=== PATIENT | female | born 1975 | race Caucasian/White ===

== ENCOUNTER 2016-11-30 22:58 | Emergency (ER) | payer BC, OTHER ==
[2016-11-30 23:11] VITALS: RESP 18
[2016-11-30] MEDS ORDERED: Sodium Chloride 0.9% 500 ML IV ONE (23:28)
--- NOTE | 2016-11-30 23:33 | C.PDOC ---
History Of Present Illness 41 yo female come in for evaluation of Left earache gradually worse for past 4 days. Pt reports, started as Left earache 4 days ago with scant yellow ear discharges. Pt sts, went to [facility] office where received Rx: Augment, Cortisporin with worsening in symptoms. Pt sts, since early today, earache severe associated with swelling around ear and (+) green discharges, headache. Otherwise, pt denies known trauma or injury, fever, denies worse headache of life, visual changes, focal deficits, vertigo, toothache, sore throat, drooling , recent dental work, dyspnea, cough, SOB, CP, abd. pain, N/V, denies any other active complaints. Ambulate to ED for evaluation, appears in pain. Time Seen by Provider: 11/30/16 23:13 Chief Complaint (Nursing): ENT Problem History Per: Patient Onset/Duration Of Symptoms: Gradual Past Medical History Reviewed: Historical Data, Nursing Documentation, Vital Signs Vital Signs: Last Vital Signs Temp 98.2 F 12/01/16 01:17 Pulse 82 12/01/16 01:17 Resp 18 12/01/16 01:17 BP 151/96 H 12/01/16 01:17 Pulse Ox 99 12/01/16 01:23 - Medical History PMH: HTN, Migraine Surgical History: Family History: States: No Known Family Hx - Social History Hx Tobacco Use: No Hx Alcohol Use: Yes Hx Substance Use: No - Immunization History Hx Tetanus Toxoid Vaccination: No Hx Influenza Vaccination: No Hx Pneumococcal Vaccination: No Review Of Systems Except As Marked, All Systems Reviewed And Found Negative. Constitutional: Negative for: Fever, Chills Eyes: Negative for: Vision Change, Eyelid Inflammation, Redness ENT: Positive for: Ear Pain, Ear Discharge. Negative for: Nose Discharge, Mouth Pain, Mouth Swelling, Throat Pain, Throat Swelling Cardiovascular: Negative for: Chest Pain Respiratory: Negative for: Cough, Shortness of Breath, Wheezing Gastrointestinal: Negative for: Nausea, Vomiting, Abdominal Pain, Diarrhea Genitourinary: Negative for: Dysuria Musculoskeletal: Negative for: Neck Pain, Back Pain Skin: Positive for: Rash Neurological: Positive for: Headache. Negative for: Weakness, Numbness, Altered Mental Status, Dizziness Physical Exam - Physical Exam Appears: Well, Non-toxic, No Acute Distress Skin: Normal Color, Warm, Dry Head: Normacephalic Eye(s): bilateral: PERRL Ear(s): Left: Other ((+)copius purulent discharge notd in ear canal. Moderate facial edema infront of Let ear with mild erythema, (+) edema and tenderness over left mastoid. Intracted Left ear tragus noted compare to Right side. ), Right: Normal Nose: No Flaring, No Discharge Oral Mucosa: Moist, No Drooling, No Trismus Tongue: Normal Appearing, No Lesions Lips: Normal Appearing Teeth: Normal Dentition, No Tender To Palpation Gingiva: Normal Appearing, No Swelling, No Tender, No Bleeding, No Abscess Throat: Normal, No Erythema, No Exudate, No Drooling, Other (Uvula midline, no edema.) Neck: Normal ROM, No Midline Cervical Tenderness, No Paracervical Tenderness, No Step Off Deformity, Supple, Other ((-) meningeal sign) Cardiovascular: Rhythm Regular Respiratory: No Stridor, No Wheezing Gastrointestinal/Abdominal: Soft, No Tenderness, No Distention, No Guarding Back: No CVA Tenderness Extremity: No Pedal Edema Neurological/Psych: Oriented x3, Normal Speech, Normal Motor, Normal Sensation, Normal Reflexes ED Course And Treatment - Laboratory Results Result Diagrams: 11/30/16 23:41 11/30/16 23:41 Lab Interpretation: No Acute Changes O2 Sat by Pulse Oximetry: 99 Pulse Ox Interpretation: Normal - CT Scan/US CT mastoid Other Rad Studies (CT/US): Radiology Report Reviewed CT/US Interpretation: EXAM: CT Temporal Bones Without Intravenous Contrast. EXAM DATE/TIME: 11/30/2016 11:33 PM. CLINICAL HISTORY: 41 years old, female; Pain; Headache and other: Ear infected and swelling; Other: Swelling left ear;. Additional info: Left mastoid pain. TECHNIQUE: Axial computed tomography images of the temporal bones without intravenous contrast. All CT. scans at this facility use one or more dose reduction techniques, viz.: automated exposure control;. ma/kV adjustment per patient size (including targeted exams where dose is matched to indication; i.e. head); or iterative reconstruction technique. Coronal and sagittal reformatted images were created and reviewed. COMPARISON: There are no prior studies for comparison. FINDINGS: Left ear: External ear: There is periarticular soft tissue swelling and edema. There is almost complete. occlusion of the left external auditory canal. There is inflammation and edema in the external auditory. canal. The tympanic membrane is difficult to identify. Middle ear and mastoid: There is almost complete opacification of the left middle ear. Ossicles are. surrounded by debris. Scutum is intact. There is minimal opacification of occasional mastoid air cells. at the mastoid tip. There is occasional incomplete opacification of the upper mastoid air cells. Inner ear: Semicircular canals and cochlea are unremarkable. Right ear. External ear: Periarticular soft tissues are unremarkable. The external auditory canal is normal in. appearance. Tympanic membrane is unremarkable. Middle ear and mastoid: Right middle ear is well aerated. Ossicles are unremarkable. Right mastoid. is well aerated and normal in appearance. Inner ear: Semicircular canal and cochlea are unremarkable. Additional findings: No focal abnormalities are seen in visualized portion of the brain. Orbital contents are unremarkable. There is no acute sinusitis. There is mild inflammation and edema in the left parotid gland. There is left facial inflammation and edema. IMPRESSION: Left external otitis and otitis media. Additional findings as described above. Thank you for allowing us to participate in the care of your patient. Dictated and Authenticated by: Iva Tubbs MD. 12/01/2016 12:48 AM Eastern Time ([place] & [place]) Progress Note: On re-evaluation, pt reports moderate improvement ni sx. Pt is afebrile, hemodynamicaly stable. Non-toxic. PulseOx 99% RA. ENT: exam c/w acute left otitis externa/media, mild left facial edema. Neck: Supple, (-) JVD , (-) meningeal sign. Lungs: CTA B/L, BS equal B/L. CVS: (+)S1S2, reg. Abd: benign. Neuorlogtical intact. Imaging results revew and appears without acute abnoramlities, no evidence of Let mastroiditis. Blood work review and appears noraml, no white count. Case discussed with ED attending and change in outpt ax tx recommend. WIll switch abx to Ciprofloxacin and ear drop to Cipro. Pt has clinical findings c/w anxiety episode. Results review and discussed with pt. Pt advised on course of ds and ref. to F/u with ENT in 1-2 days for re- evaluation. Return anna ED if any worsening or new changes. PT understand, stable for discharge now. Disposition Counseled Patient/Family Regarding: Studies Performed, Diagnosis, Need For Followup, Rx Given - Disposition Referrals: Ophelia Tong MD [Primary Care Provider] - Alex Liang MD [Staff Provider] - Disposition: HOME/ ROUTINE Disposition Time: 00:50 Condition: SERIOUS Additional Instructions: STOP ALL PREVIOUS MEDICATION: AUGMENTIN, EAR DROPS AND CHANGE TO NEW TAKE MEDICATION PRESCRIBED KEEP EAR DRY, AVOID WATER EXPOSURE FOLLOW UP WITH ENT IN 1-2 DAYS FOR RE-EVALUATION. RETURN TO ED IF ANY WORSENING OR NEW CHANGES. Prescriptions: Ciprofloxacin HCl 750 mg PO BID #14 tablet Ciprofloxacin/Dexamethasone [Ciprodex Otic] 1 drop OT BID #1 bottle Prednisone [Deltasone] 60 mg PO DAILY #9 tablet traMADol [Ultram] 50 mg PO TID #7 tab Instructions: Otitis Externa (ED), Otitis Media (ED) Forms: [facility] (Kiswahili) - Clinical Impression Clinical Impression: Otitis media, Otitis externa
[2016-11-30] MEDS ORDERED: Sodium Chloride 0.9% 1,000 ML ONE (23:41)
[2016-11-30 23:45] LABS: BASO # 0.1 K/uL (0.0-0.2); BASO % 0.9 % (0.0-2.0); EOS # 0.1 K/uL (0.0-0.7); EOS % 1.5 % (0.0-4.0); HEMATOCRIT 36.5 % (34.0-47.0); LYMPH # 1.6 K/uL (1.0-4.3); LYMPH % 16.9 % (20.0-40.0); MEAN CORPUSCULAR HGB CONC 32.8 g/dL (33.0-37.0); MEAN PLATELET VOLUME 8.2 fL (7.2-11.7); MONO % 10.4 % (0.0-10.0); RED CELL DISTRIBUTION WIDTH 13.4 % (11.5-14.5)
[2016-11-30 23:51] LABS: RBC URINE 4 /hpf (0-3); URINE BACTERIA OCC (<OCC); URINE BILIRUBIN NEGATIVE (NEGATIVE); URINE BLOOD 1+ (NEGATIVE); URINE COLOR Straw (YELLOW); URINE GLUCOSE (UA) NORMAL (Normal); URINE KETONE NEGATIVE (NEGATIVE); URINE PROTEIN NEGATIVE (NEGATIVE); URINE UROBILINOGEN NORMAL mg/dL (0.2-1.0); WBC URINE 2 /hpf (0-5)
[2016-11-30 23:52] LABS: WHITE BLOOD COUNT 9.6 K/uL (4.8-10.8)
[2016-11-30 23:53] LABS: CHLORIDE 102 mmol/L (98-107); MEAN CELL VOLUME 85.2 fL (81.0-99.0); POTASSIUM 3.4 mmol/L (3.6-5.2); SODIUM 141 mmol/L (132-148); URINE LEUKOCYTE ESTERASE NEGATIVE Leu/uL (Negative)
[2016-11-30 23:56] LABS: BLOOD UREA NITROGEN 7 mg/dL (7-17); CARBON DIOXIDE 24 mmol/L (22-30); GFR AFRICAN-AMERICAN > 60
[2016-11-30 23:57] LABS: CALCIUM 9.2 mg/dl (8.6-10.4); GLUCOSE,RANDOM 112 mg/dL (65-105)
--- NOTE | 2016-12-01 00:48 | CT ---
EXAM: CT Temporal Bones Without Intravenous Contrast EXAM DATE/TIME: 11/30/2016 11:33 PM CLINICAL HISTORY: 41 years old, female; Pain; Headache and other: Ear infected and swelling; Other: Swelling left ear; Additional info: Left mastoid pain TECHNIQUE: Axial computed tomography images of the temporal bones without intravenous contrast. All CT scans at this facility use one or more dose reduction techniques, viz.: automated exposure control; ma/kV adjustment per patient size (including targeted exams where dose is matched to indication; i.e. head); or iterative reconstruction technique. Coronal and sagittal reformatted images were created and reviewed. COMPARISON: There are no prior studies for comparison. FINDINGS: Left ear: External ear: There is periarticular soft tissue swelling and edema. There is almost complete occlusion of the left external auditory canal. There is inflammation and edema in the external auditory canal. The tympanic membrane is difficult to identify. Middle ear and mastoid: There is almost complete opacification of the left middle ear. Ossicles are surrounded by debris. Scutum is intact. There is minimal opacification of occasional mastoid air cells at the mastoid tip. There is occasional incomplete opacification of the upper mastoid air cells. Inner ear: Semicircular canals and cochlea are unremarkable. Right ear External ear: Periarticular soft tissues are unremarkable. The external auditory canal is normal in appearance. Tympanic membrane is unremarkable Middle ear and mastoid: Right middle ear is well aerated. Ossicles are unremarkable. Right mastoid is well aerated and normal in appearance. Inner ear: Semicircular canal and cochlea are unremarkable. Additional findings: No focal abnormalities are seen in visualized portion of the brain. Orbital contents are unremarkable. There is no acute sinusitis. There is mild inflammation and edema in the left parotid gland. There is left facial inflammation and edema. IMPRESSION: Left external otitis and otitis media Additional findings as described above.
[2016-12-01 01:18] VITALS: BP 151/96; PULSE 82; TEMP 98.2
[2016-12-01 01:19] VITALS: O2SAT 99
== END 2016-12-01 01:52 | disposition home or self-care (01) ==
LOC: C.ER 22:58 → SUPCPDRO 22:58 → C.ER 12-01 01:52
DX: H66.92 Otitis media, unspecified, left ear (principal); H60.92 Unspecified otitis externa, left ear
CPT/HCPCS: 70480; 80048; 81001; 84703; 85025; 87040; 96365; 96375; 99283; J0696; J1885; J2930; J7040